=== PATIENT | male | born 1975 | race African-American/Black ===

== ENCOUNTER 2017-07-07 08:29 | Inpatient (IN) | payer OTHER ==
[2017-07-07 10:31] VITALS: BMI 33.3
--- NOTE | 2017-07-07 12:47 | HP ---
COWS - Scale Resting Pulse: 0= [place] 80 or Below Sweatin= Chills/Flushing Restless Observation: 3= Extraneous Movement Pupil Size: 0= Normal to Room Light Bone or Joint Aches: 2= Severe Diffuse Aches Runny Nose/ Eye Tearin= Runny Nose/Eyes GI Upset > 30mins: 1= Stomach Cramp Tremor Observation: 2= Slight Tremor Visible Yawning Observation: 2= >3x During Session Anxiety or Irritability: 2=Irritable/Anxious Goose Flesh Skin: 0=Smooth Skin COWS Score: 15 CIWA Score - CIWA Score Nausea/Vomitin-No Nausea/No Vomiting Muscle Tremors: 4-Moderate,w/Arms Extend Anxiety: 4-Mod. Anxious/Guarded Agitation: 4-Moderately Restless Paroxysmal Sweats: 1-Minimal Palms Moist Orientation: 3-Disoriented Date>2 days Tacttile Disturbances: 1-Very Mild Itch/Numbness Auditory Disturbances: 0-None Visual Disturbances: 0-None Headache: 2-Mild CIWA-Ar Total Score: 19 Admission [facility] - HPI Chief Complaint: withdrawal sx Allergies/Adverse Reactions: Allergies Allergy/AdvReac Type Severity Reaction Status Date / Time No Known Allergies Allergy Verified 07/07/17 11:14 History of Present Illness: 41 years old male with long history of alcohol oxy xanax nicotine dependence has diabetes depression is admitted to detox Exam Limitations: No Limitations - Ebola screening Have you traveled outside of the country in the last 21 days: No (N) Have you had contact with anyone from an Ebola affected area: No Have you been sick,other than usual withdrawal symptoms: No Do you have a fever: No - Review of Systems Constitutional: Changes in sleep, Weight Stable EENT: reports: Blurred Vision (need eye glasses) Respiratory: reports: No Symptoms reported Cardiac: reports: No Symptoms Reported GI: reports: Poor Fluid Intake, Abdominal cramping : reports: No Symptoms Reported Musculoskeletal: reports: Back Pain, Joint Pain, Muscle Pain, Neck Pain Integumentary: reports: No Symptoms Reported Neuro: reports: Tingling Endocrine: reports: No Symptoms Reported Hematology: reports: No Symptoms Reported Psychiatric: reports: Judgement Intact, Anxious, Depressed Other Systems: Reviewed and Negative Patient History - Patient Medical History Hx Anemia: No Hx Asthma: No Hx Chronic Obstructive Pulmonary Disease (COPD): No Hx Cancer: No Hx Cardiac Disorders: No Hx Congestive Heart Failure: No Hx Hypertension: No Hx Hypercholesterolemia: No Hx Pacemaker: No HX Cerebrovascular Accident: No Hx Seizures: No Hx Dementia: No Hx Diabetes: Yes (IDDM) Hx Gastrointestinal Disorders: No Hx Liver Disease: No Hx Genitourinary Disorders: No Hx Sexually Transmitted Disorders: No Hx Renal Disease (ESRD): No Hx Thyroid Disease: No Hx Human Immunodeficiency Virus (HIV): No Hx Hepatitis C: No Hx Depression: Yes Hx Suicide Attempt: Yes (insulin overdose in 2016) Hx Bipolar Disorder: No Hx Schizophrenia: No - Patient Surgical History Past Surgical History: No Hx Neurologic Surgery: No Hx Cataract Extraction: No Hx Cardiac Surgery: No Hx Lung Surgery: No Hx Breast Surgery: No Hx Breast Biopsy: No Hx Abdominal Surgery: No Hx Appendectomy: No Hx Cholecystectomy: No Hx Genitourinary Surgery: No Hx Orthopedic Surgery: No - PPD History Previous Implant?: Yes Documented Results: Negative w/o proof Implanted On Prior [facility] Admission?: No PPD to be Administered?: Yes - Smoking Cessation Smoking history: Current every day smoker Have you smoked in the past 12 months: Yes Aproximately how many cigarettes per day: 20 Cigars Per Day: 0 Hx Chewing Tobacco Use: No Initiated information on smoking cessation: Yes 'Breaking Loose' booklet given: 07/07/17 - Substance & Tx. History Hx Alcohol Use: Yes Hx Substance Use: Yes Substance Use Type: Alcohol, Marijuana, Opiates, Tranquilizers Hx Substance Use Treatment: Yes (2014) - Substances Abused Alcohol-yelena/vodka/beer Route: Oral Frequency: Daily Amount used: 3 pts./2 (40 oz.) Age of first use: 11 Date of Last Use: 07/06/17 Xanax Route: Oral Frequency: Daily Amount used: 6-8 mg. Age of first use: 41 Date of Last Use: 07/04/17 Oxycodone Route: Oral Frequency: 3-6 times per week Amount used: 30 mg Age of first use: 21 Date of Last Use: 07/06/17 Marijuana Route: Smoking Frequency: Daily Amount used: $10 Age of first use: 8 Date of Last Use: 07/04/17 Family Disease History - Family Disease History Family Disease History: Other: Father ( overdose), Mother ( overdose) Other Family History: only child Admission Physical Exam [facility] - Vital Signs Vital Signs: Vital Signs - 24 hr 07/07/17 10:25 Temperature 98.1 F Pulse Rate 64 Respiratory 14 Rate Blood Pressure 127/72 - Physical General Appearance: Yes: Nourished, Appropriately Dressed, Mild Distress, Moderate Distress, Tremorous, Irritable, Sweating, Anxious HEENTM: Yes: Hearing grossly Normal, Normal ENT Inspection, Normocephalic, Normal Voice Respiratory: Yes: Chest Non-Tender, Lungs Clear, Normal Breath Sounds, No Respiratory Distress, No Accessory Muscle Use Neck: Yes: Supple, Trachea in good position Breast: Yes: Breasts Symetrical Cardiology: Yes: Regular Rhythm, S1, S2, Bradycardia Abdominal: Yes: Normal Bowel Sounds, Non Tender, Flat Genitourinary: Yes: Within Normal Limits Back: Yes: Normal Inspection Musculoskeletal: Yes: full range of Motion, Gait Steady, Back pain, Muscle Pain Extremities: Yes: Normal Inspection, Normal Range of Motion, Non-Tender, Tremors Neurological: Yes: Alert, Motor Strength 5/5, Normal Response, Depressed Affect Integumentary: Yes: Warm Lymphatic: Yes: Within Normal Limits - Diagnostic (1) Alcohol dependence with uncomplicated withdrawal Current Visit: Yes Status: Acute (2) Opioid dependence with withdrawal Current Visit: Yes Status: Acute (3) Sedative, hypnotic or anxiolytic dependence with withdrawal, uncomplicated Current Visit: Yes Status: Acute (4) Diabetes mellitus, type II Current Visit: Yes Status: Chronic Qualifiers: Diabetes mellitus complication status: with neurologic complications Diabetes mellitus complication detail: with autonomic neuropathy Diabetes mellitus strapper operator insulin use: with strapper operator use Qualified Code(s): E11.43 - Type 2 diabetes mellitus with diabetic autonomic (poly)neuropathy; Z79.4 - nursing home (current) use of insulin; Z79.4 - nursing home (current) use of insulin; Z79.4 - periodicals clerk (current) use of insulin; Z79.4 - nursing home (current) use of insulin (5) Depression (emotion) Current Visit: Yes Status: Suspected Qualifiers: Depression Type: dysthymia Qualified Code(s): F34.1 - Dysthymic disorder Cleared for Admission [facility] - Detox or Rehab [facility] Level of Care: Medically Managed Detox Regimen/Protocol: Methadone/Valium [facility] Breath Alcohol Content Breath Alcohol Content: 0 Urine Drug Screen - Results Drug Screen Negative: No Urine Drug Screen Results: THC-Marijuana, BZO-Benzodiazepines, OXY-Oxycodone
[2017-07-07] MEDS ORDERED: LOPERAMIDE HCL 2 MG CAPSULE PO PRN (12:49)
[2017-07-07] MEDS ORDERED: MAG HYDROX/AL HYDROX/SIMETH 30 ML UNIT-DOSE CUP PO PRN (12:49)
[2017-07-07] MEDS ORDERED: guaiFENesin/D-METHORPHAN HB 10 ML UNIT-DOSE CUPS PO PRN (12:49)
[2017-07-07] MEDS ORDERED: NICOTINE POLACRILEX 4 MG GUM BUC PRN (12:49)
[2017-07-07] MEDS ORDERED: MENTHOL/PHENOL 1 EACH UD MM PRN (12:49)
[2017-07-07] MEDS ORDERED: MAGNESIUM CITRATE 300 ML BOTTLE PO PRN (12:49)
[2017-07-07] MEDS ORDERED: P-EPHED 60MG/TRIPROLIDI 2.5MG TABLET PO PRN (12:49)
[2017-07-07] MEDS ORDERED: ACETAMINOPHEN 325 MG TABLET (FP) PO PRN (12:49)
[2017-07-07] MEDS ORDERED: MAGNESIUM HYDROX 2400MG/30ML ORAL SUSPENSION 30 ML CUP PO PRN (12:49)
[2017-07-07] MEDS ORDERED: IBUPROFEN 400 MG TABLET (FP) PO PRN (12:49)
[2017-07-07] MEDS ORDERED: diazePAM 5 MG TABLET PO PRN (12:49)
[2017-07-07] MEDS ORDERED: diazePAM 5 MG TABLET PO ONE (13:05)
[2017-07-07] MEDS ORDERED: METHADONE HCL 10 MG TABLET (FOR DETOX USE ONLY) PO ONE ×2 (13:05→23:00)
--- NOTE | 2017-07-07 16:10 | CONSULT ---
[facility] Psychiatric Consult - Data Date of interview: 07/07/17 Admission source: [facility] Identifying data: Pt. is a 41 year old single male, father of five, unemployed and homeless. This is patient's first admission to [facility]. Pt. admitted to for alcohol, benzodiazepine, opiate, and marijuana dependence. Substance Abuse History: Following information confirmed with Mr. Avalos: Smoking Cessation. Smoking history: Current every day smoker. Have you smoked in the past 12 months: Yes. Aproximately how many cigarettes per day: 20. Cigars Per Day: 0. Hx Chewing Tobacco Use: No. Initiated information on smoking cessation: Yes. 'Breaking Loose' booklet given: 07/07/17. - Substance & Tx. History. Hx Alcohol Use: Yes. Hx Substance Use: Yes. Substance Use Type : Alcohol, Marijuana, Opiates, Tranquilizers. Hx Substance Use Treatment: Yes ( 2014). - Substances Abused. Alcohol-yelena/vodka/beer. Route: Oral. Frequency: Daily. Amount used: 3 pts./2 (40 oz.). Age of first use: 11. Date of Last Use: 07/06/17. Xanax. Route: Oral. Frequency: Daily. Amount used : 6-8 mg. Age of first use: 41. Date of Last Use: 07/04/17. Oxycodone. Route: Oral. Frequency: 3-6 times per week. Amount used: 30 mg. Age of first use: 21. Date of Last Use: 07/06/17. Marijuana. Route: Smoking. Frequency : Daily. Amount used: $10. Age of first use: 8. Date of Last Use: 07/04/17 Medical History: Diabetes. Psychiatric History: Patient reports one psychiatric hospitalization at [facility] after a suicide attempt via injecting self with a bottle of insulin while he was intoxicated in 2016 while living in [place]. Patient does not have an outpatient care provider but reports a brief h/o seeing a psychiatrist for 2-3 months in 2016. Claims to also have seen a psychiatrist while living in [place] in 2014. States he is diagnosed with PTSD ( has seen multiple people ) and Bipolar disorder. Reports being prescribed seroquel 100mg but has not has any psychotrophic medication in one year. Physical/Sexual Abuse/Trauma History: Denies. Mental Status Exam - Mental Status Exam Alert and Oriented to: Time, Place, Person Cognitive Function: Good Patient Appearance: Well Groomed Mood: Hopeful Affect: Appropriate Patient Behavior: Talkative, Appropriate, Cooperative Speech Pattern: Clear, Appropriate Voice Loudness: Normal Thought Process: Goal Oriented Thought Disorder: Not Present Hallucinations: Denies Suicidal Ideation: Denies Homicidal Ideation: Denies Insight/Judgement: Poor Sleep: Poorly Appetite: Fair Muscle strength/Tone: Normal Gait/Station: Normal Psychiatric Findings - Problem List ([place] 1, 2,3) (1) Substance induced mood disorder Current Visit: Yes Status: Suspected (2) Alcohol dependence with uncomplicated withdrawal Current Visit: Yes Status: Acute (3) Opioid dependence with withdrawal Current Visit: Yes Status: Acute (4) Sedative, hypnotic or anxiolytic dependence with withdrawal, uncomplicated Current Visit: Yes Status: Acute - Initial Treatment Plan Initial Treatment Plan: Psychoeducation provided. Detoxification in progress. Seroquel 50mg qhs ordered. Benefits and side effects discussed. Verbal consent given.
[2017-07-07] MEDS ORDERED: INSULIN (NOVOLOG MIX 70/30) 100 UNITS/ML MDV SQ SCH (16:30)
[2017-07-07] MEDS: INSULIN (NOVOLOG MIX 70/30) 100 UNITS/ML MDV SQ SCH (17:00)
[2017-07-07] MEDS: INSULIN SLIDING SCALE (NOVOLOG) 1 VIAL SQ SCH (17:01)
[2017-07-07 18:12] LABS: URINE APPEARANCE CLEAR; URINE BILIRUBIN NEGATIVE (NEGATIVE); URINE BLOOD NEGATIVE (NEGATIVE); URINE COLOR LTYELLOW; URINE GLUCOSE (UA) 3+ (NEGATIVE); URINE KETONE 1+ (NEGATIVE); URINE NITRITE NEGATIVE (NEGATIVE); URINE PROTEIN NEGATIVE (NEGATIVE)
[2017-07-07 18:26] LABS: URINE LEUK ESTERASE 1+ (NEGATIVE)
[2017-07-07 18:31] LABS: EPI CELLS RARE /HPF (FEW); URINE MUCUS RARE
[2017-07-07] MEDS: QUEtiapine FUMARATE 50 MG TABLET PO SCH (22:33)
[2017-07-07] MEDS: THIAMINE HCL 100 MG TABLET (FP) PO SCH (22:33)
[2017-07-07] MEDS: diazePAM 5 MG TABLET PO SCH (22:34)
[2017-07-08] MEDS: diazePAM 5 MG TABLET PO SCH ×3 (05:30→22:40)
[2017-07-08] MEDS ORDERED: INSULIN (NOVOLOG MIX 70/30) 100 UNITS/ML MDV SQ SCH (07:00)
[2017-07-08] MEDS: INSULIN SLIDING SCALE (NOVOLOG) 1 VIAL SQ SCH ×2 (07:20→16:52)
[2017-07-08] MEDS ORDERED: METHADONE HCL 10 MG TABLET (FOR DETOX USE ONLY) PO SCH (10:00)
[2017-07-08] MEDS: INSULIN (NOVOLOG MIX 70/30) 100 UNITS/ML MDV SQ SCH ×2 (10:10→16:52)
[2017-07-08] MEDS: NICOTINE 21 MG/24 HOURS TOPICAL PATCH TD SCH (10:10)
[2017-07-08] MEDS: PRENATAL VITAMINS W/ FOLIC ACID TABLET (FP) PO SCH (10:10)
[2017-07-08 10:26] LABS: HEMATOCRIT 44.8 % (35.4-49); HEMOGLOBIN 14.9 GM/dL (11.7-16.9); MCH 27.7 pg (25.7-33.7); MCHC 33.2 g/dl (32.0-35.9); MEAN CELL VOLUME 83.4 fl (80-96); PLATELET COUNT 178 K/MM3 (134-434); RBC 5.37 M/mm3 (4.00-5.60); RDW 15.3 % (11.9-15.9)
[2017-07-08 10:33] LABS: BLOOD UREA NITROGEN 11 mg/dL (7-18); CHLORIDE 102 mmol/L (98-107); POTASSIUM 4.5 mmol/L (3.5-5.1); SODIUM 138 mmol/L (136-145)
--- NOTE | 2017-07-08 10:57 | PN ---
[facility] CIWA - CIWA Score Nausea/Vomitin-No Nausea/No Vomiting Muscle Tremors: 3 Anxiety: 4-Mod. Anxious/Guarded Agitation: 3 Paroxysmal Sweats: 1-Minimal Palms Moist Orientation: 0-Oriented Tacttile Disturbances: 3-Moderate Itch/Numb/Burn Auditory Disturbances: 0-None Visual Disturbances: 0-None Headache: 0-None Present CIWA-Ar Total Score: 14 S COWS - Scale Resting Pulse: 0= [place] 80 or Below Sweatin= Chills/Flushing Restless Observation: 3= Extraneous Movement Pupil Size: 0= Normal to Room Light Bone or Joint Aches: 2= Severe Diffuse Aches Runny Nose/ Eye Tearin= Nasal Congestion GI Upset > 30mins: 0= None Tremor Observation of Outstretched Hands: 2= Slight Tremor Visible Yawning Observation: 1= 1-2x During Session Anxiety or Irritability: 2=Irritable/Anxious Goose Flesh Skin: 0=Smooth Skin COWS Score: 12 S Progress Note (SOAP) Subjective: ANXIETY, SWEATS, FATIGUE. Objective: 07/08/17 11:35 Vital Signs Temperature 96.4 F L 07/08/17 09:44 Pulse Rate 63 07/08/17 09:44 Respiratory Rate 20 07/08/17 09:44 Blood Pressure 128/80 07/08/17 09:44 O2 Sat by Pulse Oximetry (%) Laboratory Last Values WBC 5.0 K/mm3 (4.0-10.0) 07/08/17 06:00 RBC 5.37 M/mm3 (4.00-5.60) 07/08/17 06:00 Hgb 14.9 GM/dL (11.7-16.9) 07/08/17 06:00 Hct 44.8 % (35.4-49) 07/08/17 06:00 MCV 83.4 fl (80-96) 07/08/17 06:00 MCH 27.7 pg (25.7-33.7) 07/08/17 06:00 MCHC 33.2 g/dl (32.0-35.9) 07/08/17 06:00 RDW 15.3 % (11.9-15.9) 07/08/17 06:00 Plt Count 178 K/MM3 (134-434) 07/08/17 06:00 MPV 10.0 fl (7.5-11.1) 07/08/17 06:00 Sodium 138 mmol/L (136-145) 07/08/17 06:00 Potassium 4.5 mmol/L (3.5-5.1) 07/08/17 06:00 Chloride 102 mmol/L (98-107) 07/08/17 06:00 Carbon Dioxide 24 mmol/L (21-32) 07/08/17 06:00 Anion Gap 12 (8-16) 07/08/17 06:00 BUN 11 mg/dL (7-18) 07/08/17 06:00 Creatinine 0.9 mg/dL (0.7-1.3) 07/08/17 06:00 Creat Clearance w eGFR > 60 (>60) 07/08/17 06:00 POC Glucometer 366 UNITS (80-120) 07/07/17 16:28 Random Glucose 300 mg/dL (74-106) H 07/08/17 06:00 Calcium 9.2 mg/dL (8.5-10.1) 07/08/17 06:00 Total Bilirubin 0.8 mg/dL (0.2-1.0) 07/08/17 06:00 AST 18 U/L (15-37) 07/08/17 06:00 ALT 27 U/L (12-78) 07/08/17 06:00 Alkaline Phosphatase 92 U/L (45-117) 07/08/17 06:00 Total Protein 7.6 g/dl (6.4-8.2) 07/08/17 06:00 Albumin 4.1 g/dl (3.4-5.0) 07/08/17 06:00 Urine Color Ltyellow 07/07/17 16:00 Urine Appearance Clear 07/07/17 16:00 Urine pH 5.0 (5.0-8.0) 07/07/17 16:00 Ur Specific [place] 1.032 (1.001-1.035) 07/07/17 16:00 Urine Protein Negative (NEGATIVE) 07/07/17 16:00 Urine Glucose (UA) 3+ (NEGATIVE) H 07/07/17 16:00 Urine Ketones 1+ (NEGATIVE) H 07/07/17 16:00 Urine Blood Negative (NEGATIVE) 07/07/17 16:00 Urine Nitrite Negative (NEGATIVE) 07/07/17 16:00 Urine Bilirubin Negative (NEGATIVE) 07/07/17 16:00 Urine Urobilinogen 2.0 mg/dL (0.2-1.0) 07/07/17 16:00 Ur Leukocyte Esterase 1+ (NEGATIVE) H 07/07/17 16:00 Urine WBC (Auto) 15 /hpf (3-5) 07/07/17 16:00 Urine RBC (Auto) 4 /hpf (0-3) 07/07/17 16:00 Ur Epithelial Cells Rare /HPF (FEW) 07/07/17 16:00 Urine Mucus Rare 07/07/17 16:00 HIV 1&2 Antibody Screen Negative 07/07/17 13:30 HIV P24 Antigen Negative 07/07/17 13:30 LABS NOTED Assessment: 07/08/17 11:35 WITHDRAWAL SX Plan: CONTINUE DETOX REPEAT UA
[2017-07-08 11:00] LABS: ALBUMIN 4.1 g/dl (3.4-5.0); ALK PHOS 92 U/L (45-117); ANION GAP 12 (8-16); BILIRUBIN,TOTAL 0.8 mg/dL (0.2-1.0); CALCIUM 9.2 mg/dL (8.5-10.1); CO2 24 mmol/L (21-32); CREATININE 0.9 mg/dL (0.7-1.3); GLUCOSE,RANDOM 300 mg/dL (74-106); SGOT/AST 18 U/L (15-37); SGPT/ALT 27 U/L (12-78); TOT PROT 7.6 g/dl (6.4-8.2)
[2017-07-08] MEDS ORDERED: INSULIN (NOVOLOG) ASPART 100 UNITS/ML 10ML VIAL SQ ONE (12:20)
[2017-07-08] MEDS ORDERED: INSULIN (NOVOLOG) ASPART 100 UNITS/ML 10ML VIAL ONE ×2 (12:24→16:49)
[2017-07-08] MEDS: QUEtiapine FUMARATE 50 MG TABLET PO SCH (22:40)
[2017-07-08] MEDS: THIAMINE HCL 100 MG TABLET (FP) PO SCH (22:40)
[2017-07-09] MEDS ORDERED: INSULIN (NOVOLOG) ASPART 100 UNITS/ML 10ML VIAL ONE ×2 (09:13→18:04)
[2017-07-09] MEDS: INSULIN (NOVOLOG MIX 70/30) 100 UNITS/ML MDV SQ SCH ×2 (09:17→18:12)
[2017-07-09] MEDS: INSULIN SLIDING SCALE (NOVOLOG) 1 VIAL SQ SCH ×2 (09:18→18:12)
[2017-07-09] MEDS: diazePAM 5 MG TABLET PO SCH ×2 (10:12→22:20)
[2017-07-09] MEDS: PRENATAL VITAMINS W/ FOLIC ACID TABLET (FP) PO SCH (10:12)
[2017-07-09] MEDS: METHADONE HCL 5 MG TABLET (FOR DETOX USE ONLY) PO SCH (10:12)
[2017-07-09] MEDS: NICOTINE 21 MG/24 HOURS TOPICAL PATCH TD SCH (10:13)
--- NOTE | 2017-07-09 17:23 | PN ---
[facility] CIWA - CIWA Score Nausea/Vomitin-No Nausea/No Vomiting Muscle Tremors: 3 Anxiety: 3 Agitation: 2 Paroxysmal Sweats: 3 Orientation: 2-Disoriented Date<2 days Tacttile Disturbances: 2-Mild Itch/Numbness/Burn Auditory Disturbances: 0-None Visual Disturbances: 2-Mild Sensitivity Headache: 0-None Present CIWA-Ar Total Score: 17 [facility] COWS - Scale Resting Pulse: 0= [place] 80 or Below Sweatin= Chills/Flushing Restless Observation: 1= Difficult to Sit Still Pupil Size: 0= Normal to Room Light Bone or Joint Aches: 2= Severe Diffuse Aches Runny Nose/ Eye Tearin= None GI Upset > 30mins: 1= Stomach Cramp Tremor Observation of Outstretched Hands: 2= Slight Tremor Visible Yawning Observation: 1= 1-2x During Session Anxiety or Irritability: 2=Irritable/Anxious Goose Flesh Skin: 3=Piloerection COWS Score: 13 S Progress Note (SOAP) Subjective: Stomach Cramping, Tremors, Sweating, Anxious. Objective: PT. A & O X 2 (UNCERTAIN ABOUT CURRENT DAY / DATE). PT. OBSERVED AMBULATING ON UNIT. NO ACUTE DISTRESS. 07/09/17 17:21 Vital Signs Temperature 98.4 F 07/09/17 14:19 Pulse Rate 68 07/09/17 14:19 Respiratory Rate 18 07/09/17 14:19 Blood Pressure 127/73 07/09/17 14:19 O2 Sat by Pulse Oximetry (%) Laboratory Tests 07/07/17 07/07/17 07/07/17 11:43 13:30 16:00 WBC RBC Hgb Hct MCV MCH MCHC RDW Plt Count MPV Sodium Potassium Chloride Carbon Dioxide Anion Gap BUN Creatinine Creat Clearance w eGFR POC Glucometer 261 Random Glucose Calcium Total Bilirubin AST ALT Alkaline Phosphatase Total Protein Albumin Urine Color Ltyellow Urine Appearance Clear Urine pH 5.0 Ur Specific [place] 1.032 Urine Protein Negative Urine Glucose (UA) 3+ H Urine Ketones 1+ H Urine Blood Negative Urine Nitrite Negative Urine Bilirubin Negative Urine Urobilinogen 2.0 Ur Leukocyte Esterase 1+ H Urine WBC (Auto) 15 Urine RBC (Auto) 4 Ur Epithelial Cells Rare Urine Mucus Rare RPR Titer HIV 1&2 Antibody Screen Negative HIV P24 Antigen Negative 07/07/17 07/08/17 07/08/17 16:28 06:00 06:00 WBC 5.0 RBC 5.37 Hgb 14.9 Hct 44.8 MCV 83.4 MCH 27.7 MCHC 33.2 RDW 15.3 Plt Count 178 MPV 10.0 Sodium 138 Potassium 4.5 Chloride 102 Carbon Dioxide 24 Anion Gap 12 BUN 11 Creatinine 0.9 Creat Clearance w eGFR > 60 POC Glucometer 366 Random Glucose 300 H Calcium 9.2 Total Bilirubin 0.8 AST 18 ALT 27 Alkaline Phosphatase 92 Total Protein 7.6 Albumin 4.1 Urine Color Urine Appearance Urine pH Ur Specific [place] Urine Protein Urine Glucose (UA) Urine Ketones Urine Blood Urine Nitrite Urine Bilirubin Urine Urobilinogen Ur Leukocyte Esterase Urine WBC (Auto) Urine RBC (Auto) Ur Epithelial Cells Urine Mucus RPR Titer HIV 1&2 Antibody Screen HIV P24 Antigen 07/08/17 07/08/17 07/08/17 06:00 11:42 16:42 WBC RBC Hgb Hct MCV MCH MCHC RDW Plt Count MPV Sodium Potassium Chloride Carbon Dioxide Anion Gap BUN Creatinine Creat Clearance w eGFR POC Glucometer 310 346 Random Glucose Calcium Total Bilirubin AST ALT Alkaline Phosphatase Total Protein Albumin Urine Color Urine Appearance Urine pH Ur Specific [place] Urine Protein Urine Glucose (UA) Urine Ketones Urine Blood Urine Nitrite Urine Bilirubin Urine Urobilinogen Ur Leukocyte Esterase Urine WBC (Auto) Urine RBC (Auto) Ur Epithelial Cells Urine Mucus RPR Titer Nonreactive HIV 1&2 Antibody Screen HIV P24 Antigen LABS NOTED. Assessment: 07/09/17 17:21 WITHDRAWAL SYMPTOMS. Plan: CONTINUE DETOX. REPEAT UA FOR ADMISSION ABNORAMLITIES. INCREASE DAILY PO FLUID INTAKE.
[2017-07-09] MEDS: QUEtiapine FUMARATE 50 MG TABLET PO SCH (22:20)
[2017-07-09] MEDS: THIAMINE HCL 100 MG TABLET (FP) PO SCH (22:20)
[2017-07-10] MEDS: INSULIN SLIDING SCALE (NOVOLOG) 1 VIAL SQ SCH ×2 (08:04→18:12)
[2017-07-10] MEDS: INSULIN (NOVOLOG MIX 70/30) 100 UNITS/ML MDV SQ SCH ×2 (08:04→18:11)
[2017-07-10] MEDS: PRENATAL VITAMINS W/ FOLIC ACID TABLET (FP) PO SCH (09:46)
[2017-07-10] MEDS: METHADONE HCL 5 MG TABLET (FOR DETOX USE ONLY) PO SCH (09:46)
[2017-07-10] MEDS: diazePAM 5 MG TABLET PO SCH ×2 (09:46→22:12)
[2017-07-10] MEDS: NICOTINE 21 MG/24 HOURS TOPICAL PATCH TD SCH (09:46)
[2017-07-10] MEDS ORDERED: INSULIN (NOVOLOG) ASPART 100 UNITS/ML 10ML VIAL ONE (16:32)
--- NOTE | 2017-07-10 19:57 | PN ---
[facility] Progress Note (SOAP) Subjective: shakes sweats Objective: 07/10/17 19:56 A & O x 3 Ambulating steadily Assessment: 07/10/17 19:56 withdrawal sx Plan: continue detox
[2017-07-10] MEDS: THIAMINE HCL 100 MG TABLET (FP) PO SCH (22:12)
[2017-07-10] MEDS: QUEtiapine FUMARATE 50 MG TABLET PO SCH (22:12)
[2017-07-11] MEDS: INSULIN SLIDING SCALE (NOVOLOG) 1 VIAL SQ SCH ×3 (07:25→18:20)
[2017-07-11] MEDS ORDERED: INSULIN (NOVOLOG) ASPART 100 UNITS/ML 10ML VIAL ONE ×2 (07:48→18:20)
[2017-07-11] MEDS: INSULIN (NOVOLOG MIX 70/30) 100 UNITS/ML MDV SQ SCH ×2 (07:55→18:18)
[2017-07-11] MEDS ORDERED: METHADONE HCL 10 MG TABLET (FOR DETOX USE ONLY) PO SCH (10:00)
[2017-07-11] MEDS ORDERED: diazePAM 5 MG TABLET PO SCH (10:00)
[2017-07-11] MEDS: NICOTINE 21 MG/24 HOURS TOPICAL PATCH TD SCH (10:18)
[2017-07-11] MEDS: PRENATAL VITAMINS W/ FOLIC ACID TABLET (FP) PO SCH (10:18)
--- NOTE | 2017-07-11 10:50 | PN ---
[facility] Progress Note (SOAP) Subjective: SWEATS,SLIGHT ANXIETY, BODY ACHES. Objective: 07/11/17 10:49 Vital Signs Temperature 97.4 F L 07/11/17 10:00 Pulse Rate 72 07/11/17 10:00 Respiratory Rate 20 07/11/17 10:00 Blood Pressure 119/72 07/11/17 10:00 O2 Sat by Pulse Oximetry (%) Laboratory Last Values WBC 5.0 K/mm3 (4.0-10.0) 07/08/17 06:00 RBC 5.37 M/mm3 (4.00-5.60) 07/08/17 06:00 Hgb 14.9 GM/dL (11.7-16.9) 07/08/17 06:00 Hct 44.8 % (35.4-49) 07/08/17 06:00 MCV 83.4 fl (80-96) 07/08/17 06:00 MCH 27.7 pg (25.7-33.7) 07/08/17 06:00 MCHC 33.2 g/dl (32.0-35.9) 07/08/17 06:00 RDW 15.3 % (11.9-15.9) 07/08/17 06:00 Plt Count 178 K/MM3 (134-434) 07/08/17 06:00 MPV 10.0 fl (7.5-11.1) 07/08/17 06:00 Sodium 138 mmol/L (136-145) 07/08/17 06:00 Potassium 4.5 mmol/L (3.5-5.1) 07/08/17 06:00 Chloride 102 mmol/L (98-107) 07/08/17 06:00 Carbon Dioxide 24 mmol/L (21-32) 07/08/17 06:00 Anion Gap 12 (8-16) 07/08/17 06:00 BUN 11 mg/dL (7-18) 07/08/17 06:00 Creatinine 0.9 mg/dL (0.7-1.3) 07/08/17 06:00 Creat Clearance w eGFR > 60 (>60) 07/08/17 06:00 POC Glucometer 263 UNITS (80-120) 07/11/17 07:43 Random Glucose 300 mg/dL (74-106) H 07/08/17 06:00 Calcium 9.2 mg/dL (8.5-10.1) 07/08/17 06:00 Total Bilirubin 0.8 mg/dL (0.2-1.0) 07/08/17 06:00 AST 18 U/L (15-37) 07/08/17 06:00 ALT 27 U/L (12-78) 07/08/17 06:00 Alkaline Phosphatase 92 U/L (45-117) 07/08/17 06:00 Total Protein 7.6 g/dl (6.4-8.2) 07/08/17 06:00 Albumin 4.1 g/dl (3.4-5.0) 07/08/17 06:00 Urine Color Ltyellow 07/07/17 16:00 Urine Appearance Clear 07/07/17 16:00 Urine pH 5.0 (5.0-8.0) 07/07/17 16:00 Ur Specific [place] 1.032 (1.001-1.035) 07/07/17 16:00 Urine Protein Negative (NEGATIVE) 07/07/17 16:00 Urine Glucose (UA) 3+ (NEGATIVE) H 07/07/17 16:00 Urine Ketones 1+ (NEGATIVE) H 07/07/17 16:00 Urine Blood Negative (NEGATIVE) 07/07/17 16:00 Urine Nitrite Negative (NEGATIVE) 07/07/17 16:00 Urine Bilirubin Negative (NEGATIVE) 07/07/17 16:00 Urine Urobilinogen 2.0 mg/dL (0.2-1.0) 07/07/17 16:00 Ur Leukocyte Esterase 1+ (NEGATIVE) H 07/07/17 16:00 Urine WBC (Auto) 15 /hpf (3-5) 07/07/17 16:00 Urine RBC (Auto) 4 /hpf (0-3) 07/07/17 16:00 Ur Epithelial Cells Rare /HPF (FEW) 07/07/17 16:00 Urine Mucus Rare 07/07/17 16:00 RPR Titer Nonreactive (NONREACTIVE) 07/08/17 06:00 HIV 1&2 Antibody Screen Negative 07/07/17 13:30 HIV P24 Antigen Negative 07/07/17 13:30 REPEAT UA PENDING Assessment: 07/11/17 10:49 WITHDRAWAL SX Plan: CONTINUE DETOX INCREASE PO FLUIDS.
[2017-07-11] MEDS: THIAMINE HCL 100 MG TABLET (FP) PO SCH (22:31)
[2017-07-11] MEDS: QUEtiapine FUMARATE 50 MG TABLET PO SCH (22:31)
[2017-07-12] MEDS ORDERED: METHADONE HCL 5 MG TABLET (FOR DETOX USE ONLY) PO SCH (06:00)
[2017-07-12] MEDS: INSULIN SLIDING SCALE (NOVOLOG) 1 VIAL SQ SCH (08:01)
[2017-07-12] MEDS: INSULIN (NOVOLOG MIX 70/30) 100 UNITS/ML MDV SQ SCH (08:01)
--- NOTE | 2017-07-12 09:36 | DS ---
[facility] Detox Discharge Summary Admission Date: 07/07/17 Discharge Date: 07/12/17 - History Present History: Alcohol Dependence, Opioid Dependence, Sedative Dependence Additional Comments: DETOX COMPLETED. ALERT O X 3. NAD. Pertinent Past History: SEE DX BELOW - Physical Exam Results Vital Signs: Vital Signs Temperature 97.9 F 07/11/17 22:35 Pulse Rate 73 07/11/17 22:35 Respiratory Rate 20 07/12/17 03:30 Blood Pressure 135/77 07/11/17 22:35 O2 Sat by Pulse Oximetry (%) Pertinent Admission Physical Exam Findings: WITHDRAWAL SX Laboratory Last Values WBC 5.0 K/mm3 (4.0-10.0) 07/08/17 06:00 RBC 5.37 M/mm3 (4.00-5.60) 07/08/17 06:00 Hgb 14.9 GM/dL (11.7-16.9) 07/08/17 06:00 Hct 44.8 % (35.4-49) 07/08/17 06:00 MCV 83.4 fl (80-96) 07/08/17 06:00 MCH 27.7 pg (25.7-33.7) 07/08/17 06:00 MCHC 33.2 g/dl (32.0-35.9) 07/08/17 06:00 RDW 15.3 % (11.9-15.9) 07/08/17 06:00 Plt Count 178 K/MM3 (134-434) 07/08/17 06:00 MPV 10.0 fl (7.5-11.1) 07/08/17 06:00 Sodium 138 mmol/L (136-145) 07/08/17 06:00 Potassium 4.5 mmol/L (3.5-5.1) 07/08/17 06:00 Chloride 102 mmol/L (98-107) 07/08/17 06:00 Carbon Dioxide 24 mmol/L (21-32) 07/08/17 06:00 Anion Gap 12 (8-16) 07/08/17 06:00 BUN 11 mg/dL (7-18) 07/08/17 06:00 Creatinine 0.9 mg/dL (0.7-1.3) 07/08/17 06:00 Creat Clearance w eGFR > 60 (>60) 07/08/17 06:00 POC Glucometer 336 UNITS (80-120) 07/11/17 16:28 Random Glucose 300 mg/dL (74-106) H 07/08/17 06:00 Calcium 9.2 mg/dL (8.5-10.1) 07/08/17 06:00 Total Bilirubin 0.8 mg/dL (0.2-1.0) 07/08/17 06:00 AST 18 U/L (15-37) 07/08/17 06:00 ALT 27 U/L (12-78) 07/08/17 06:00 Alkaline Phosphatase 92 U/L (45-117) 07/08/17 06:00 Total Protein 7.6 g/dl (6.4-8.2) 07/08/17 06:00 Albumin 4.1 g/dl (3.4-5.0) 07/08/17 06:00 Urine Color Ltyellow 07/07/17 16:00 Urine Appearance Clear 07/07/17 16:00 Urine pH 5.0 (5.0-8.0) 07/07/17 16:00 Ur Specific [place] 1.032 (1.001-1.035) 07/07/17 16:00 Urine Protein Negative (NEGATIVE) 07/07/17 16:00 Urine Glucose (UA) 3+ (NEGATIVE) H 07/07/17 16:00 Urine Ketones 1+ (NEGATIVE) H 07/07/17 16:00 Urine Blood Negative (NEGATIVE) 07/07/17 16:00 Urine Nitrite Negative (NEGATIVE) 07/07/17 16:00 Urine Bilirubin Negative (NEGATIVE) 07/07/17 16:00 Urine Urobilinogen 2.0 mg/dL (0.2-1.0) 07/07/17 16:00 Ur Leukocyte Esterase 1+ (NEGATIVE) H 07/07/17 16:00 Urine WBC (Auto) 15 /hpf (3-5) 07/07/17 16:00 Urine RBC (Auto) 4 /hpf (0-3) 07/07/17 16:00 Ur Epithelial Cells Rare /HPF (FEW) 07/07/17 16:00 Urine Mucus Rare 07/07/17 16:00 RPR Titer Nonreactive (NONREACTIVE) 07/08/17 06:00 HIV 1&2 Antibody Screen Negative 07/07/17 13:30 HIV P24 Antigen Negative 07/07/17 13:30 PT REFUSED TO GIVE SPECIMEN FOR REPEAT UA ON 07/10/17 PER NURSE RUBI. ASYMPTOMATIC. - Treatment Hospital Course: Detox Protocol Followed, Detoxed Safely, Responded well, Discharged Condition Good - Medication Discharge Medications: Ambulatory Orders Insulin Aspart Prot/Insuln Asp [Novolog Mix 70-30 Vial] 15 unit SQ ACDIN Insulin Aspart Prot/Insuln Asp [Novolog Mix 70-30 Vial] 30 unit SQ ACBK Quetiapine Fumarate [Seroquel -] 100 mg PO HS 07/07/17 - Diagnosis (1) Alcohol dependence with uncomplicated withdrawal Current Visit: Yes Status: Acute (2) Opioid dependence with withdrawal Current Visit: Yes Status: Acute (3) Sedative, hypnotic or anxiolytic dependence with withdrawal, uncomplicated Current Visit: Yes Status: Acute (4) Diabetes mellitus, type II Current Visit: Yes Status: Chronic Qualifiers: Diabetes mellitus complication status: with neurologic complications Diabetes mellitus complication detail: with autonomic neuropathy Diabetes mellitus termite treater helper insulin use: with termite treater helper use Qualified Code(s): E11.43 - Type 2 diabetes mellitus with diabetic autonomic (poly)neuropathy; Z79.4 - custodial (current) use of insulin; Z79.4 - superintendent terminal (current) use of insulin; Z79.4 - superintendent terminal (current) use of insulin; Z79.4 - custodial (current) use of insulin (5) Substance induced mood disorder Current Visit: Yes Status: Suspected - AMA Did Patient Leave Against Medical Advice: No
[2017-07-12 10:03] VITALS: BP 124/76; PULSE 60; TEMP 98.4
[2017-07-12] MEDS: PRENATAL VITAMINS W/ FOLIC ACID TABLET (FP) PO SCH (10:18)
[2017-07-12] MEDS: NICOTINE 21 MG/24 HOURS TOPICAL PATCH TD SCH (10:18)
--- NOTE | 2017-07-12 13:39 | EKG ---
Test Reason : Blood Pressure : / mmHG Vent. Rate : 070 BPM Atrial Rate : 070 BPM P-R Int : 154 ms QRS Dur : 092 ms QT Int : 418 ms P-R-T Axes : 050 015 039 degrees QTc Int : 451 ms NORMAL SINUS RHYTHM NORMAL ECG NO PREVIOUS ECGS AVAILABLE Confirmed by MD Mcneal Daniel ([id number]) on 07/12/2017 1:38:52 PM Referred By: Confirmed By:Wilfredo Mcneal MD
== END 2017-07-12 10:40 | disposition home or self-care (01) | DRG 897 ==
LOC: YASAS 08:29 → Y3N 12:19
PROVIDERS: ADMIT Internal Medicine; ATTEND Internal Medicine
PROC: HZ2ZZZZ Detoxification Services for Substance Abuse Treatment (ICD-10-PCS; principal; 2017-07-07)
DX: F11.23 Opioid dependence with withdrawal (principal); F13.230 Sedative, hypnotic or anxiolytic dependence with withdrawal, uncomplicated; F19.24 Other psychoactive substance dependence with psychoactive substance-induced mood disorder; F34.1 Dysthymic disorder; E11.43 Type 2 diabetes mellitus with diabetic autonomic (poly)neuropathy; Z79.4 Long term (current) use of insulin; Z59.0 Homelessness
CPT/HCPCS: 36415; 80053; 81003; 81015; 82962; 85027; 86593; 87389; 93005; 93010

== ENCOUNTER 2017-12-09 13:44 | Inpatient (IN) | payer OTHER ==
--- NOTE | 2017-12-09 20:27 | HP ---
"COWS - Scale Resting Pulse: 0= [place] 80 or Below Sweatin= No chills or Flushing Restless Observation: 1= Difficult to Sit Still Pupil Size: 1= Pupils >than Normal Bone or Joint Aches: 0= None Runny Nose/ Eye Tearin= None GI Upset > 30mins: 0= None Tremor Observation: 1= Tremor Webster, Not Seen Yawning Observation: 0= None Anxiety or Irritability: 1=Feels Anxious/Irritable Goose Flesh Skin: 0=Smooth Skin COWS Score: 4 CIWA Score - CIWA Score Nausea/Vomitin-Mild Nausea/No Vomiting Muscle Tremors: 4-Moderate,w/Arms Extend Anxiety: 1-Mildly Anxious Agitation: 1-Slight > Activity Paroxysmal Sweats: No Perspiration Orientation: 0-Oriented Tacttile Disturbances: 0-None Auditory Disturbances: 0-None Visual Disturbances: 0-None Headache: 0-None Present CIWA-Ar Total Score: 7 Admission ROS BHS - HPI Chief Complaint: Here for alcohol detox. Allergies/Adverse Reactions: Allergies Allergy/AdvReac Type Severity Reaction Status Date / Time No Known Allergies Allergy Verified 12/09/17 19:40 History of Present Illness: Patient went to [facility] on 12/07 and monitored x 3 days for mental health reasons to get seroquel for sleep. States discharged today and prescriptions for Abilify, gabapentin, and Zoloft sent to [facility] on [address] No heroin use x 1 week. Patient states does not take gabapentin or abilify and will not be staring these medications. States takes Zoloft. States does not have a mental health provider. States alcohol use since age 10. Denies hx of blackouts or seizures. Cocaine use , nasally, since age 23. States illicit Xanax use since age 40. Denies alcohol or cocaine and Xanax use x 2 days. No heroin use for 1 week. Denies any period of sobriety. States relapses 1 week after detox. States interested in rehab for this visit. Is aware being admitted for an alcohol and cocaine detox. Hx IDDM. Search Terms: Satinder Avalos, 1975 Search Date: 12/09/2017 08:17:16 PM The Drug Utilization Report below displays all of the controlled substance prescriptions, if any, that your patient has filled in the last twelve months. The information displayed on this report is compiled from pharmacy submissions to the Department, and accurately reflects the information as submitted by the pharmacies. This report was requested by: Jess Reyes | Reference #: [id number] There are no results for the search terms that you entered. Exam Limitations: No Limitations - Ebola screening Have you traveled outside of the country in the last 21 days: No Have you had contact with anyone from an Ebola affected area: No Have you been sick,other than usual withdrawal symptoms: No Do you have a fever: No - Review of Systems Constitutional: Changes in sleep (Difficulty falling asleep for years. Takes Seroquel for sleep as well as to stabilize mood.) EENT: reports: Blurred Vision (Wears glasses. Did not bring.) Respiratory: reports: No Symptoms reported Cardiac: reports: No Symptoms Reported GI: reports: No Symptoms Reported : reports: No Symptoms Reported Musculoskeletal: reports: No Symptoms Reported Integumentary: reports: Other (Pimple on forehead x 1 week. Does not itch.) Neuro: reports: Tremors (mild r/t withdrawal) Endocrine: reports: Increased Thirst (Since hasn't taken insulin.), Other (Has IDDM x 15 years.) Hematology: reports: No Symptoms Reported Psychiatric: reports: Orientated x3, Agitated, Anxious, Depressed (Chronic. Off and on meds for depression. Denies thoughts of harming self.) Patient History - Patient Medical History Hx Anemia: No Hx Asthma: No Hx Chronic Obstructive Pulmonary Disease (COPD): No Hx Cancer: No Hx Cardiac Disorders: No Hx Congestive Heart Failure: No Hx Hypertension: No Hx Hypercholesterolemia: No Hx Pacemaker: No HX Cerebrovascular Accident: No Hx Seizures: No Hx Dementia: No Hx Diabetes: Yes (IDDM - last took insulin on 12/07. ) Hx Gastrointestinal Disorders: No Hx Liver Disease: No Hx Genitourinary Disorders: No Hx Sexually Transmitted Disorders: No Hx Renal Disease (ESRD): No Hx Thyroid Disease: No Hx Human Immunodeficiency Virus (HIV): No Hx Hepatitis C: No Hx Depression: Yes Hx Suicide Attempt: Yes (insulin overdose in 2016) Hx Bipolar Disorder: No Hx Schizophrenia: No - Patient Surgical History Past Surgical History: No Hx Neurologic Surgery: No Hx Cataract Extraction: No Hx Cardiac Surgery: No Hx Lung Surgery: No Hx Breast Surgery: No Hx Breast Biopsy: No Hx Abdominal Surgery: No Hx Appendectomy: No Hx Cholecystectomy: No Hx Genitourinary Surgery: No Hx Section: No Hx Orthopedic Surgery: No Anesthesia Reaction: No - PPD History Previous Implant?: Yes Documented Results: Negative w/proof Implanted On Prior [facility] Admission?: Yes Date: 07/09/17 PPD to be Administered?: No - Smoking Cessation Smoking history: Current every day smoker Have you smoked in the past 12 months: Yes Aproximately how many cigarettes per day: 20 Cigars Per Day: 0 Hx Chewing Tobacco Use: No Initiated information on smoking cessation: Yes 'Breaking Loose' booklet given: 12/09/17 - Substance & Tx. History Hx Alcohol Use: Yes Hx Substance Use: Yes Substance Use Type: Alcohol, Cocaine Hx Substance Use Treatment: Yes (previous detoxes ) - Substances Abused Alcohol Route: Oral Frequency: Daily Amount used: LIQUOR- 1 QUART, BEER- 1 SIX PACK Age of first use: 10 Date of Last Use: 12/07/17 Cocaine Route: Inhalation (Sniff) Frequency: Daily Amount used: 1 gm Age of first use: 23 Date of Last Use: 12/07/17 Alprazolam (Xanax) Route: Oral Frequency: Daily Amount used: 6 mg daily Age of first use: 40 Date of Last Use: 12/06/17 Heroin Route: Inhalation Frequency: 3-6 times per week (About 3 x/week.) Amount used: 6 bags Age of first use: 33 Date of Last Use: 12/02/17 Family Disease History - Family Disease History Family Disease History: Other: Father ( overdose), Mother ( overdose) Admission Physical Exam [facility] - Vital Signs Vital Signs: Vital Signs - 24 hr 12/09/17 17:09 Temperature 98.9 F Pulse Rate 78 Respiratory 18 Rate Blood Pressure 128/73 - Physical General Appearance: Yes: Tremorous, Irritable, Anxious HEENTM: Yes: EOMI, Hearing grossly Normal, Normal Voice, SIERRA (4 mm) Respiratory: Yes: Chest Non-Tender, Lungs Clear, Normal Breath Sounds, No Respiratory Distress Neck: Yes: No masses,lesions,Nodules, Supple Breast: Yes: Breast Exam Deferred Cardiology: Yes: Regular Rhythm, Regular Rate, S1, S2 Abdominal: Yes: Normal Bowel Sounds, Non Tender, Soft Genitourinary: Yes: Within Normal Limits Back: Yes: Normal Inspection Musculoskeletal: Yes: full range of Motion, Gait Steady Extremities: Yes: Normal Capillary Refill, Normal Range of Motion, Non-Tender, Tremors (mild in hands) Neurological: Yes: taker off braker machine II-XII NML intact, Fully Oriented, Motor Strength 5/5 Integumentary: Yes: Normal Color, Dry, Warm, Other (Single papular lesions(R) forehead. No exudate.) Lymphatic: Yes: Within Normal Limits - Diagnostic (1) Opioid abuse Current Visit: Yes Status: Chronic (2) Cocaine dependence Current Visit: Yes Status: Chronic Qualifiers: Substance use status: uncomplicated Qualified Code(s): F14.20 - Cocaine dependence, uncomplicated (3) IDDM (insulin dependent diabetes mellitus) Current Visit: Yes Status: Acute (4) Alcohol dependence with uncomplicated withdrawal Current Visit: Yes Status: Acute (5) Nicotine dependence unspecified, with withdrawal Current Visit: Yes Status: Acute Qualifiers: Nicotine product type: cigarettes Qualified Code(s): F17.213 - Nicotine dependence, cigarettes, with withdrawal (6) Papular eruption Current Visit: Yes Status: Acute Cleared for Admission [facility] - Detox or Rehab [facility] Level of Care: Medically Managed Detox Regimen/Protocol: Librium [facility] Breath Alcohol Content Breath Alcohol Content: 0 Urine Drug Screen - Results Drug Screen Negative: No Urine Drug Screen Results: DARIN-Cocaine"
[2017-12-09] MEDS ORDERED: MAGNESIUM CITRATE 300 ML BOTTLE PO PRN (21:15)
[2017-12-09] MEDS ORDERED: MENTHOL/PHENOL 1 EACH UD MM PRN (21:15)
[2017-12-09] MEDS ORDERED: hydrOXYzine PAMOATE 50 MG CAPSULE (FP) PO PRN (21:15)
[2017-12-09] MEDS ORDERED: IBUPROFEN 400 MG TABLET (FP) PO PRN (21:15)
[2017-12-09] MEDS ORDERED: guaiFENesin/D-METHORPHAN HB 10 ML UNIT-DOSE CUPS PO PRN (21:15)
[2017-12-09] MEDS ORDERED: P-EPHED 60MG/TRIPROLIDI 2.5MG TABLET PO PRN (21:15)
[2017-12-09] MEDS ORDERED: chlordiazePOXIDE HCL 25 MG CAPSULE PO PRN (21:15)
[2017-12-09] MEDS ORDERED: MAG HYDROX/AL HYDROX/SIMETH 30 ML UNIT-DOSE CUP PO PRN (21:15)
[2017-12-09] MEDS ORDERED: MAGNESIUM HYDROX 2400MG/30ML ORAL SUSPENSION 30 ML CUP PO PRN (21:15)
[2017-12-09] MEDS ORDERED: LOPERAMIDE HCL 2 MG CAPSULE PO PRN (21:15)
[2017-12-09] MEDS ORDERED: ACETAMINOPHEN 325 MG TABLET (FP) PO PRN (21:15)
[2017-12-09] MEDS ORDERED: MELATONIN 5 MG TABLETS PO PRN (22:00)
[2017-12-09] MEDS ORDERED: INSULIN (NOVOLOG MIX 70/30) 100 UNITS/ML MDV SQ SCH (22:00)
[2017-12-09] MEDS: THIAMINE HCL 100 MG TABLET (FP) PO SCH (23:06)
[2017-12-09] MEDS: BACITRACIN 0.9 GM PACKET TP SCH (23:06)
[2017-12-09] MEDS: chlordiazePOXIDE HCL 25 MG CAPSULE PO SCH (23:07)
[2017-12-10] MEDS: INSULIN (NOVOLOG MIX 70/30) 100 UNITS/ML MDV SQ SCH ×2 (07:18→16:56)
[2017-12-10] MEDS: chlordiazePOXIDE HCL 25 MG CAPSULE PO SCH ×4 (07:18→23:20)
[2017-12-10] MEDS ORDERED: INSULIN (NOVOLOG MIX 70/30) 100 UNITS/ML MDV SQ SCH (08:00)
[2017-12-10] MEDS: BACITRACIN 0.9 GM PACKET TP SCH ×2 (11:00→23:19)
[2017-12-10] MEDS: PRENATAL VITAMINS W/ FOLIC ACID TABLET (FP) PO SCH (11:00)
[2017-12-10] MEDS: NICOTINE 21 MG/24 HOURS TOPICAL PATCH TD SCH (11:00)
--- NOTE | 2017-12-10 11:02 | PN ---
S CIWA - CIWA Score Nausea/Vomitin Muscle Tremors: 2 Anxiety: 2 Agitation: 2 Paroxysmal Sweats: 1-Minimal Palms Moist Orientation: 0-Oriented Tacttile Disturbances: 1-Very Mild Itch/Numbness Auditory Disturbances: 0-None Visual Disturbances: 0-None Headache: 2-Mild CIWA-Ar Total Score: 12 BHS COWS - Scale Resting Pulse: 0= [place] 80 or Below Sweatin= Chills/Flushing Restless Observation: 1= Difficult to Sit Still Pupil Size: 0= Normal to Room Light Bone or Joint Aches: 1= Mild Discomfort Runny Nose/ Eye Tearin= Nasal Congestion GI Upset > 30mins: 1= Stomach Cramp Tremor Observation of Outstretched Hands: 1= Tremor Bee, Not Seen Yawning Observation: 0= None Anxiety or Irritability: 0= None Goose Flesh Skin: 0=Smooth Skin COWS Score: 6 BHS Progress Note (SOAP) Subjective: Anxiety, irritability and sleep interruption Objective: 12/10/17 11:01 Vital Signs - 8 hr 12/10/17 12/10/17 12/10/17 03:30 06:00 10:09 Temperature 96.8 F L 98.9 F Pulse Rate 60 55 L Respiratory 18 18 18 Rate Blood Pressure 91/49 116/51 Laboratory Last Values POC Glucometer 282 UNITS (80-120) 12/10/17 06:53 Labs pending Assessment: 12/10/17 11:02 Withdrawal sx Plan: Continue detox
--- NOTE | 2017-12-10 13:50 | CONSULT ---
[facility] Psychiatric Consult - Data Date of interview: 12/10/17 Admission source: [facility] Identifying data: Second admission to [facility] for this 42 y/o AA male seeking detox treatment, on , for alcohol,cocaine,heroin and cannabis dependence.Patient is single, a father of five,undomiciled,unemployed and not informative about personal income. Substance Abuse History: Taken from [facility] report.Patient is marginally cooperative." Why don't you go to my records to get the information? " Smoking history: Current every day smoker. Have you smoked in the past 12 months: Yes. Aproximately how many cigarettes per day: 20. Cigars Per Day: 0. Hx Chewing Tobacco Use: No. Initiated information on smoking cessation: Yes. 'Breaking Loose' booklet given: 12/09/17. - Substance & Tx. History. Hx Alcohol Use: Yes. Hx Substance Use: Yes. Substance Use Type: Alcohol, Cocaine. Hx Substance Use Treatment: Yes (previous detoxes ). - Substances Abused. Alcohol. Route: Oral. Frequency: Daily. Amount used: LIQUOR- 1 QUART, BEER- 1 SIX PACK. Age of first use: 10. Date of Last Use: 12/07/17. Cocaine. Route: Inhalation (Sniff). Frequency: Daily. Amount used: 1 gm. Age of first use: 23. Date of Last Use: 12/07/17. Alprazolam (Xanax). Route: Oral. Frequency: Daily. Amount used: 6 mg daily. Age of first use: 40. Date of Last Use: 12/06/17. Heroin. Route: Inhalation. Frequency: 3-6 times per week (About 3 x/week.). Amount used: 6 bags. Age of first use: 33. Date of Last Use: 12/02/17 Medical History: Taken from chart : diabetes mellitus. Psychiatric History: Patient is a hostile,irritable and marginally cooperative historian.Clearly not willing to converse with this data analyst report writer.Mr Avalos denies having a psychiatric diosrder other substance abuse.No contact with a psychiatric OPD care provider.Previous records indicate a history of " one psychiatric hospitalization at [facility] after a suicide attempt via self-injection of insulin " during an episode of drug intoxication in 2016.Saw a psychiatrist for a period of 2-3 months in [place].Lost to follow up.Diagnosed with PTSD as per records.In this interview, the patient requested to resume seroquel at 50 mg/hs to address chronic insomnia. Physical/Sexual Abuse/Trauma History: Patient declines to discuss this subject. Additional Comment: Urine Drug Screen Results: DARIN-Cocaine.Noted. Mental Status Exam - Mental Status Exam Alert and Oriented to: Time, Place, Person Cognitive Function: Good Patient Appearance: Well Groomed Mood: Angry, Hostile, Withdrawn, Irritable (upset for being summoned for tests, vitals and examinations) Affect: Mood Congruent Patient Behavior: Fatigued, Uncooperative, Guarded Speech Pattern: Clear Voice Loudness: Normal Thought Process: Goal Oriented Hallucinations: Denies Suicidal Ideation: Denies Homicidal Ideation: Denies Insight/Judgement: Poor Sleep: Poorly, Difficulty falling asleep Appetite: Good Muscle strength/Tone: Normal (no complaint offered) Gait/Station: Normal Psychiatric Findings - Problem List ([place] 1, 2,3) (1) Alcohol dependence with uncomplicated withdrawal Current Visit: Yes Status: Acute (2) Opioid dependence with withdrawal Current Visit: Yes Status: Acute (3) Sedative, hypnotic or anxiolytic dependence with withdrawal, uncomplicated Current Visit: Yes Status: Acute (4) Cocaine dependence Current Visit: Yes Status: Acute (5) Substance induced mood disorder Current Visit: Yes Status: Acute (6) Insomnia Current Visit: Yes Status: Acute - Initial Treatment Plan Initial Treatment Plan: Psychoeducation.Sleep hygiene.Detoxification.Seroquel 50 mg po hs.Side effects/benefits discussed with patient.Consent (verbal) given.Observation.
[2017-12-10] MEDS: NICOTINE POLACRILEX 2 MG GUM BUC PRN (17:48)
[2017-12-10] MEDS: QUEtiapine FUMARATE 50 MG TABLET PO SCH (23:20)
[2017-12-10] MEDS: THIAMINE HCL 100 MG TABLET (FP) PO SCH (23:20)
[2017-12-11] MEDS: INSULIN (NOVOLOG MIX 70/30) 100 UNITS/ML MDV SQ SCH ×2 (07:35→17:07)
[2017-12-11] MEDS ORDERED: INSULIN (NOVOLOG MIX 70/30) 100 UNITS/ML MDV SQ ONE (07:38)
[2017-12-11] MEDS: chlordiazePOXIDE HCL 25 MG CAPSULE PO SCH ×2 (07:43→11:04)
[2017-12-11] MEDS: BACITRACIN 0.9 GM PACKET TP SCH ×2 (11:04→23:03)
[2017-12-11] MEDS: PRENATAL VITAMINS W/ FOLIC ACID TABLET (FP) PO SCH (11:04)
[2017-12-11] MEDS: NICOTINE 21 MG/24 HOURS TOPICAL PATCH TD SCH (11:04)
[2017-12-11] MEDS ORDERED: chlordiazePOXIDE HCL 25 MG CAPSULE PO SCH (12:48)
--- NOTE | 2017-12-11 12:52 | PN ---
S CIWA - CIWA Score Nausea/Vomitin-No Nausea/No Vomiting Muscle Tremors: 3 Anxiety: 3 Agitation: 2 Paroxysmal Sweats: 1-Minimal Palms Moist Orientation: 1-Uncertain about Date Tacttile Disturbances: 1-Very Mild Itch/Numbness Auditory Disturbances: 0-None Visual Disturbances: 0-None Headache: 0-None Present CIWA-Ar Total Score: 11 BHS Progress Note (SOAP) Subjective: feeling low energy tired trouble sleep at night last alcohol 12/07/17 due to hospitalized at [facility] x 3-4 days feeling sleepy from librium Objective: 12/11/17 12:52 Vital Signs Temperature 97.5 F L 12/11/17 06:00 Pulse Rate 64 12/11/17 06:00 Respiratory Rate 18 12/11/17 06:00 Blood Pressure 90/48 12/11/17 06:00 O2 Sat by Pulse Oximetry (%) Laboratory Last Values POC Glucometer 353 UNITS (80-120) 12/11/17 06:16 Laboratory Tests 12/09/17 12/10/17 12/10/17 19:21 06:53 16:33 POC Glucometer 411 282 340 12/11/17 06:16 POC Glucometer 353 12/11/17 12:55 last blood results 06/2017 Assessment: 12/11/17 12:55 withdrawal sx Plan: continue detox reduce librium routine dosage of 25mg to 15 mg due to patient was hospitalized 3 -4 days routine librium plus prn librium for alcohol withdrawal management admission lab work order result pending
[2017-12-11] MEDS: NICOTINE POLACRILEX 2 MG GUM BUC PRN (17:09)
[2017-12-11] MEDS: QUEtiapine FUMARATE 50 MG TABLET PO SCH (23:03)
[2017-12-11] MEDS: THIAMINE HCL 100 MG TABLET (FP) PO SCH (23:03)
[2017-12-11] MEDS: chlordiazePOXIDE 5 MG CAPSULE PO SCH (23:03)
[2017-12-12] MEDS: chlordiazePOXIDE 5 MG CAPSULE PO SCH ×3 (06:01→17:47)
[2017-12-12] MEDS: INSULIN (NOVOLOG MIX 70/30) 100 UNITS/ML MDV SQ SCH ×2 (07:54→16:59)
[2017-12-12] MEDS: PRENATAL VITAMINS W/ FOLIC ACID TABLET (FP) PO SCH (10:47)
[2017-12-12] MEDS: BACITRACIN 0.9 GM PACKET TP SCH ×2 (10:47→22:31)
[2017-12-12] MEDS: NICOTINE 21 MG/24 HOURS TOPICAL PATCH TD SCH (10:48)
--- NOTE | 2017-12-12 11:08 | EKG ---
Test Reason : Blood Pressure : / mmHG Vent. Rate : 064 BPM Atrial Rate : 064 BPM P-R Int : 166 ms QRS Dur : 082 ms QT Int : 402 ms P-R-T Axes : 052 015 037 degrees QTc Int : 414 ms NORMAL SINUS RHYTHM NORMAL ECG WHEN COMPARED WITH ECG OF 09-DEC-2017 22:24, NO SIGNIFICANT CHANGE WAS FOUND Confirmed by DHRUV BEARDEN MD ([id number]) on 12/12/2017 11:07:48 AM Referred By: Confirmed By:DHRUV BEARDEN MD
--- NOTE | 2017-12-12 11:09 | EKG ---
Test Reason : Blood Pressure : / mmHG Vent. Rate : 057 BPM Atrial Rate : 057 BPM P-R Int : 160 ms QRS Dur : 078 ms QT Int : 424 ms P-R-T Axes : 034 020 035 degrees QTc Int : 412 ms SINUS BRADYCARDIA OTHERWISE NORMAL ECG WHEN COMPARED WITH ECG OF 07-JUL-2017 15:28, NO SIGNIFICANT CHANGE WAS FOUND Confirmed by DHRUV BEARDEN MD ([id number]) on 12/12/2017 11:08:38 AM Referred By: Confirmed By:DHRUV BEARDEN MD
--- NOTE | 2017-12-12 12:17 | PN ---
S Progress Note (SOAP) Subjective: alert,irritable,interrupted sleep,anxious Objective: 12/12/17 12:17 Vital Signs Temperature 97.0 F L 12/12/17 09:00 Pulse Rate 75 12/12/17 09:00 Respiratory Rate 18 12/12/17 09:00 Blood Pressure 128/76 12/12/17 09:00 O2 Sat by Pulse Oximetry (%) Assessment: 12/12/17 12:21 withdrawal symptom Plan: continue detox,psychiatric evaluation,discharge in am
--- NOTE | 2017-12-12 14:24 | PN ---
Psychiatric Progress Note Vital Signs: Vital Signs Period Temp Pulse Resp BP Sys/Luo Pulse Ox Last 24 Hr 96.3 F-98 F 62-81 18-20 92-149/50-78 Date of Session: 12/12/17 Chief Complaint:: Insomnia HPI: Patient reports not sleeping well and asking to change his Seroquel to 100mg po qhs he was taking prior to admission with good response Current Medications: Active Medications Generic Name Dose Route Start Last Admin Trade Name Freq PRN Reason Stop Dose Admin Acetaminophen 650 mg 12/09/17 21:15 Tylenol - PO Q4H PRN FEVER Al Hydroxide/Mg Hydroxide 30 ml 12/09/17 21:15 Mylanta Oral Suspension - PO Q6H PRN DYSPEPSIA Bacitracin 0.9 gm 12/09/17 22:00 12/12/17 10:47 Bacitracin - TP 0.9 gm BID SEBASTIAN Administration Chlordiazepoxide HCl 15 mg 12/11/17 23:00 12/12/17 10:47 Librium - PO 12/12/17 17:01 15 mg [id number] SEBASTIAN Administration Chlordiazepoxide HCl 25 mg 12/09/17 21:15 12/11/17 17:08 Librium - PO 12/12/17 21:14 25 mg Q4H PRN Administration WITHDRAWAL(CONT SUBST) Chlordiazepoxide HCl 10 mg 12/12/17 23:00 Librium - PO 12/13/17 17:01 [id number] SEBASTIAN Eucalyptus/Menthol/Phenol/Sorbitol 1 each 12/09/17 21:15 Cepastat Lozenge - MM Q4H PRN SORE THROAT Guaifenesin 10 ml 12/09/17 21:15 Robitussin Dm - PO Q6H PRN COUGH Hydroxyzine Pamoate 50 mg 12/09/17 21:15 12/09/17 23:06 Vistaril - PO 50 mg Q4H PRN Administration AGITATION Ibuprofen 400 mg 12/09/17 21:15 Motrin - PO Q6H PRN PAIN LEVEL 4-6 Insulin Aspart 25 units 12/10/17 16:30 12/11/17 17:07 Novolog Mix 70/30 Vial SQ 25 units ACDIN SEBASTIAN Administration Insulin Aspart 30 units 12/10/17 07:00 12/12/17 07:54 Novolog Mix 70/30 Vial SQ 30 units ACBK SEBASTIAN Administration Loperamide HCl 4 mg 12/09/17 21:15 Imodium - PO Q6H PRN DIARRHEA Magnesium Citrate 300 ml 12/09/17 21:15 Citroma - PO Q48H PRN CONSTIPATION Magnesium Hydroxide 30 ml 12/09/17 21:15 Milk Of Magnesia - PO DAILY PRN CONSTIPATION Melatonin 5 mg 12/09/17 22:00 Melatonin PO HS PRN INSOMNIA Nicotine 21 mg 12/10/17 10:00 12/12/17 10:48 Nicoderm Patch - TD Not Given DAILY SEBASTIAN Nicotine Polacrilex 2 mg 12/09/17 21:15 12/11/17 17:09 Nicorette Gum - BUC 2 mg Q2H PRN Administration NICOTINE REPLACEMENT RX Multivit/Folic Acid/Iron 1 tab 12/10/17 10:00 12/12/17 10:47 Vitamins (Sjr) - PO 1 tab DAILY SEBASTIAN Administration Pseudoephedrine/Triprolidine 1 combo 12/09/17 21:15 Actifed - PO TID PRN NASAL CONGESTION Quetiapine Fumarate 50 mg 12/10/17 22:00 12/11/17 23:03 Seroquel - PO 50 mg HS SEBASTIAN Administration Thiamine HCl 100 mg 12/09/17 22:00 12/11/17 23:03 Vitamin B1 - PO 100 mg HS SEBASTIAN Administration Medication(s) Change(s): Seroquel 100mg po qhs Mental Status Exam - Mental Status Exam Alert and Oriented to: Person Cognitive Function: Fair Patient Appearance: Well Groomed Mood: Anxious, Apprehensive Affect: Mood Congruent Patient Behavior: Cooperative Speech Pattern: Delayed Voice Loudness: Mildly Soft/Quiet Thought Process: Goal Oriented Thought Disorder: Being Controlled Hallucinations: Denies Suicidal Ideation: Denies Homicidal Ideation: Denies Insight/Judgement: Fair Sleep: Difficulty falling asleep Appetite: Fair Muscle strength/Tone: Normal Gait/Station: Normal Additional Comments: Seroquel 100mg po qhs Psychiatric Treatment Plan - Problem List (1) Alcohol dependence with uncomplicated withdrawal Current Visit: Yes (2) Cocaine dependence Current Visit: Yes (3) Insomnia Current Visit: Yes (4) Opioid dependence with withdrawal Current Visit: Yes (5) Sedative, hypnotic or anxiolytic dependence with withdrawal, uncomplicated Current Visit: Yes (6) Substance induced mood disorder Current Visit: Yes (7) Diabetes mellitus, type II Current Visit: No Qualifiers: Diabetes mellitus senior living insulin use: with terminal computer operator use Diabetes mellitus complication status: with neurologic complications Diabetes mellitus complication detail: with autonomic neuropathy Qualified Code(s): E11.43 - Type 2 diabetes mellitus with diabetic autonomic (poly)neuropathy; Z79.4 - termite treater (current) use of insulin; Z79.4 - termite treater (current) use of insulin; Z79.4 - termite treater (current) use of insulin; Z79.4 - [facility] (current) use of insulin Initial treatment plan: Seroquel 100mg po qhs
[2017-12-12 15:45] LABS: HEMATOCRIT 42.4 % (35.4-49); HEMOGLOBIN 14.4 GM/dL (11.7-16.9); MCH 28.8 pg (25.7-33.7); MEAN CELL VOLUME 84.5 fl (80-96); MEAN PLT VOLUME 9.9 fl (7.5-11.1); PLATELET COUNT 147 K/MM3 (134-434); RBC 5.02 M/mm3 (4.00-5.60); RDW 13.4 % (11.9-15.9); WHITE BLOOD COUNT 3.3 K/mm3 (4.0-10.0)
[2017-12-12 15:56] LABS: ANION GAP 7 (8-16); BLOOD UREA NITROGEN 11 mg/dL (7-18); CALCIUM 8.2 mg/dL (8.5-10.1); CHLORIDE 102 mmol/L (98-107); CO2 29 mmol/L (21-32); POTASSIUM 3.9 mmol/L (3.5-5.1); SGOT/AST 7 U/L (15-37); SGPT/ALT 23 U/L (12-78); SODIUM 138 mmol/L (136-145)
[2017-12-12 15:59] LABS: ALK PHOS 76 U/L (45-117); BILIRUBIN,TOTAL 0.3 mg/dL (0.2-1.0); TOT PROT 5.8 g/dl (6.4-8.2)
[2017-12-12 16:01] LABS: GLUCOSE,RANDOM 362 mg/dL (74-106)
[2017-12-12] MEDS ORDERED: INSULIN (NOVOLOG MIX 70/30) 100 UNITS/ML MDV SQ ONE (16:54)
[2017-12-12] MEDS ORDERED: QUEtiapine FUMARATE 100 MG TABLET (FP) PO SCH (22:00)
[2017-12-12] MEDS: chlordiazePOXIDE HCL 10 MG CAPSULE PO SCH (22:31)
[2017-12-12] MEDS: THIAMINE HCL 100 MG TABLET (FP) PO SCH (22:31)
[2017-12-13] MEDS: chlordiazePOXIDE HCL 10 MG CAPSULE PO SCH ×2 (06:36→11:31)
[2017-12-13] MEDS: INSULIN (NOVOLOG MIX 70/30) 100 UNITS/ML MDV SQ SCH (08:00)
--- NOTE | 2017-12-13 10:35 | PN ---
S Progress Note (SOAP) Subjective: alert,no complaint Objective: 12/13/17 10:32 Vital Signs Temperature 97.9 F 12/13/17 09:48 Pulse Rate 81 12/13/17 09:48 Respiratory Rate 18 12/13/17 09:48 Blood Pressure 131/50 12/13/17 09:48 O2 Sat by Pulse Oximetry (%) Laboratory Last Values WBC 3.3 K/mm3 (4.0-10.0) L 12/12/17 09:50 RBC 5.02 M/mm3 (4.00-5.60) 12/12/17 09:50 Hgb 14.4 GM/dL (11.7-16.9) 12/12/17 09:50 Hct 42.4 % (35.4-49) 12/12/17 09:50 MCV 84.5 fl (80-96) 12/12/17 09:50 MCH 28.8 pg (25.7-33.7) 12/12/17 09:50 MCHC 34.0 g/dl (32.0-35.9) 12/12/17 09:50 RDW 13.4 % (11.9-15.9) D 12/12/17 09:50 Plt Count 147 K/MM3 (134-434) 12/12/17 09:50 MPV 9.9 fl (7.5-11.1) 12/12/17 09:50 Sodium 138 mmol/L (136-145) 12/12/17 09:50 Potassium 3.9 mmol/L (3.5-5.1) 12/12/17 09:50 Chloride 102 mmol/L (98-107) 12/12/17 09:50 Carbon Dioxide 29 mmol/L (21-32) D 12/12/17 09:50 Anion Gap 7 (8-16) L 12/12/17 09:50 BUN 11 mg/dL (7-18) 12/12/17 09:50 Creatinine 1.0 mg/dL (0.7-1.3) 12/12/17 09:50 Creat Clearance w eGFR > 60 (>60) 12/12/17 09:50 POC Glucometer 212 UNITS (80-120) 12/13/17 06:25 Random Glucose 362 mg/dL (74-106) H* D 12/12/17 09:50 Calcium 8.2 mg/dL (8.5-10.1) L 12/12/17 09:50 Total Bilirubin 0.3 mg/dL (0.2-1.0) 12/12/17 09:50 AST 7 U/L (15-37) L D 12/12/17 09:50 ALT 23 U/L (12-78) 12/12/17 09:50 Alkaline Phosphatase 76 U/L (45-117) 12/12/17 09:50 Total Protein 5.8 g/dl (6.4-8.2) L 12/12/17 09:50 Albumin 3.0 g/dl (3.4-5.0) L 12/12/17 09:50 bgm 212 Assessment: 12/13/17 10:33 detox completed Plan: patient to be transferred to [address] [place] [address] for continuing further level of care
[2017-12-13] MEDS: PRENATAL VITAMINS W/ FOLIC ACID TABLET (FP) PO SCH (11:31)
[2017-12-13] MEDS: BACITRACIN 0.9 GM PACKET TP SCH (11:31)
[2017-12-13] MEDS: NICOTINE 21 MG/24 HOURS TOPICAL PATCH TD SCH (11:31)
[2017-12-13 13:22] VITALS: BP 125/73; PULSE 73; TEMP 98.7; BMI 29.1
--- NOTE | 2017-12-13 15:39 | DS ---
[facility] Detox Discharge Summary Admission Date: 12/09/17 Discharge Date: 12/13/17 - History Present History: Alcohol Dependence, Cocaine Dependence Additional Comments: follow up with after care program as arrangement Pertinent Past History: iddm nicotine dependence - Physical Exam Results Vital Signs: Vital Signs Temperature 98.7 F 12/13/17 13:21 Pulse Rate 73 12/13/17 13:21 Respiratory Rate 18 12/13/17 13:21 Blood Pressure 125/73 12/13/17 13:21 O2 Sat by Pulse Oximetry (%) Pertinent Admission Physical Exam Findings: withdrawal signs and symptom Vital Signs Temperature 98.7 F 12/13/17 13:21 Pulse Rate 73 12/13/17 13:21 Respiratory Rate 18 12/13/17 13:21 Blood Pressure 125/73 12/13/17 13:21 O2 Sat by Pulse Oximetry (%) Laboratory Last Values WBC 3.3 K/mm3 (4.0-10.0) L 12/12/17 09:50 RBC 5.02 M/mm3 (4.00-5.60) 12/12/17 09:50 Hgb 14.4 GM/dL (11.7-16.9) 12/12/17 09:50 Hct 42.4 % (35.4-49) 12/12/17 09:50 MCV 84.5 fl (80-96) 12/12/17 09:50 MCH 28.8 pg (25.7-33.7) 12/12/17 09:50 MCHC 34.0 g/dl (32.0-35.9) 12/12/17 09:50 RDW 13.4 % (11.9-15.9) D 12/12/17 09:50 Plt Count 147 K/MM3 (134-434) 12/12/17 09:50 MPV 9.9 fl (7.5-11.1) 12/12/17 09:50 Sodium 138 mmol/L (136-145) 12/12/17 09:50 Potassium 3.9 mmol/L (3.5-5.1) 12/12/17 09:50 Chloride 102 mmol/L (98-107) 12/12/17 09:50 Carbon Dioxide 29 mmol/L (21-32) D 12/12/17 09:50 Anion Gap 7 (8-16) L 12/12/17 09:50 BUN 11 mg/dL (7-18) 12/12/17 09:50 Creatinine 1.0 mg/dL (0.7-1.3) 12/12/17 09:50 Creat Clearance w eGFR > 60 (>60) 12/12/17 09:50 POC Glucometer 212 UNITS (80-120) 12/13/17 06:25 Random Glucose 362 mg/dL (74-106) H* D 12/12/17 09:50 Calcium 8.2 mg/dL (8.5-10.1) L 12/12/17 09:50 Total Bilirubin 0.3 mg/dL (0.2-1.0) 12/12/17 09:50 AST 7 U/L (15-37) L D 12/12/17 09:50 ALT 23 U/L (12-78) 12/12/17 09:50 Alkaline Phosphatase 76 U/L (45-117) 12/12/17 09:50 Total Protein 5.8 g/dl (6.4-8.2) L 12/12/17 09:50 Albumin 3.0 g/dl (3.4-5.0) L 12/12/17 09:50 RPR Titer Nonreactive (NONREACTIVE) 12/12/17 09:50 - Treatment Hospital Course: Detox Protocol Followed, Detoxed Safely, Responded well, Discharged Condition Good Patient has Accepted a [facility] Referral [facility] - Medication Discharge Medications: Ambulatory Orders Quetiapine Fumarate [Seroquel -] 100 mg PO HS 07/07/17 Insulin (Novolog 70/30) [Novolog Mix 70/30 Vial] 25 iu SQ HS 12/09/17 Insulin (Novolog 70/30) [Novolog Mix 70/30 Vial] 30 iu SQ DAILY 12/09/17 Quetiapine Fumarate [Seroquel -] 100 mg PO HS #30 tablet 12/12/17 - Diagnosis (1) Alcohol dependence with uncomplicated withdrawal Current Visit: Yes Status: Acute (2) Cocaine dependence Current Visit: Yes Status: Chronic Qualifiers: Substance use status: uncomplicated Qualified Code(s): F14.20 - Cocaine dependence, uncomplicated (3) Sedative, hypnotic or anxiolytic dependence with withdrawal, uncomplicated Current Visit: Yes Status: Acute (4) Diabetes mellitus, type II Current Visit: No Status: Chronic Qualifiers: Diabetes mellitus terminal operator insulin use: with terminal operator use Diabetes mellitus complication status: with neurologic complications Diabetes mellitus complication detail: with autonomic neuropathy Qualified Code(s): E11.43 - Type 2 diabetes mellitus with diabetic autonomic (poly)neuropathy; Z79.4 - exterminator termite (current) use of insulin; Z79.4 - detention (current) use of insulin; Z79.4 - exterminator termite (current) use of insulin; Z79.4 - detention (current) use of insulin - AMA Did Patient Leave Against Medical Advice: No
== END 2017-12-13 13:03 | disposition other institution (70) | DRG 897 ==
LOC: YASAS 13:44 → Y6N 19:45 → Y5N 12-13 13:06
PROVIDERS: ADMIT Surgery; ATTEND Surgery
PROC: HZ2ZZZZ Detoxification Services for Substance Abuse Treatment (ICD-10-PCS; principal; 2017-12-09)
DX: F11.23 Opioid dependence with withdrawal (principal); F14.20 Cocaine dependence, uncomplicated; F10.230 Alcohol dependence with withdrawal, uncomplicated; F13.230 Sedative, hypnotic or anxiolytic dependence with withdrawal, uncomplicated; F17.213 Nicotine dependence, cigarettes, with withdrawal; F19.24 Other psychoactive substance dependence with psychoactive substance-induced mood disorder; G47.00 Insomnia, unspecified; E11.43 Type 2 diabetes mellitus with diabetic autonomic (poly)neuropathy; Z79.4 Long term (current) use of insulin; R21 Rash and other nonspecific skin eruption; Z59.0 Homelessness
CPT/HCPCS: 36415; 80053; 82962; 85027; 86593; 93005; 93010

== ENCOUNTER 2017-12-13 15:15 | Inpatient (IN) | payer OTHER ==
[2017-12-13 15:31] VITALS: BP 125/73; PULSE 73; TEMP 98.7; BMI 26.9
--- NOTE | 2017-12-13 15:59 | HP ---
[facility] Rehab Assess/Revision - Admission History Admitted to Rehab from: [facility] Date of Admission to Rehab: 12/13/17 - Vital signs Vital Signs: Vital Signs Period Temp Pulse Resp BP Sys/Luo Pulse Ox Last 24 Hr 98.7 F 73 18 125/73 - Findings Detox History & Physical reviewed: Yes Concur with findings: Yes Comments/Additional Findings: for ehab as protocol Inpatient Rehab Admission - Initial Determination Are CD services needed?: Yes Free of communicable disease: Yes Not in need of hospitalization: Yes - Rehab Admission Criteria Previous failed treatment: Yes Poor recovery environment: Yes Comorbidities: Yes Lacks judgement: No Patient is meeting Inpatient Rehab admission criteria:: Yes
[2017-12-13] MEDS ORDERED: LOPERAMIDE HCL 2 MG CAPSULE PO PRN (16:10)
[2017-12-13] MEDS ORDERED: hydrOXYzine PAMOATE 50 MG CAPSULE (FP) PO PRN (16:10)
[2017-12-13] MEDS ORDERED: MAG HYDROX/AL HYDROX/SIMETH 30 ML UNIT-DOSE CUP PO PRN (16:10)
[2017-12-13] MEDS ORDERED: MAGNESIUM CITRATE 300 ML BOTTLE PO PRN (16:10)
[2017-12-13] MEDS ORDERED: ACETAMINOPHEN 325 MG TABLET (FP) PO PRN (16:10)
[2017-12-13] MEDS ORDERED: guaiFENesin/D-METHORPHAN HB 10 ML UNIT-DOSE CUPS PO PRN (16:10)
[2017-12-13] MEDS ORDERED: MENTHOL/PHENOL 1 EACH UD MM PRN (16:10)
[2017-12-13] MEDS ORDERED: P-EPHED 60MG/TRIPROLIDI 2.5MG TABLET PO PRN (16:10)
[2017-12-13] MEDS ORDERED: IBUPROFEN 400 MG TABLET (FP) PO PRN (16:10)
[2017-12-13] MEDS ORDERED: MAGNESIUM HYDROX 2400MG/30ML ORAL SUSPENSION 30 ML CUP PO PRN (16:10)
[2017-12-13] MEDS ORDERED: INSULIN (NOVOLOG MIX 70/30) 100 UNITS/ML MDV SQ SCH (16:30)
[2017-12-13] MEDS ORDERED: MELATONIN 5 MG TABLETS PO PRN (22:00)
[2017-12-13] MEDS ORDERED: THIAMINE HCL 100 MG TABLET (FP) PO SCH (22:00)
[2017-12-14] MEDS ORDERED: INSULIN (NOVOLOG MIX 70/30) 100 UNITS/ML MDV SQ SCH (07:00)
[2017-12-14] MEDS ORDERED: PRENATAL VITAMINS W/ FOLIC ACID TABLET (FP) PO SCH (10:00)
== END 2017-12-13 20:00 | disposition left against medical advice (07) | DRG 894 ==
LOC: YASAS 15:15 → Y5N 15:16
PROVIDERS: ADMIT Psychiatry & Neurology Psychiatry; ATTEND Psychiatry & Neurology Psychiatry
PROC: HZ42ZZZ Group Counseling for Substance Abuse Treatment, Cognitive-Behavioral (ICD-10-PCS; principal; 2017-12-13)
DX: F10.230 Alcohol dependence with withdrawal, uncomplicated (principal); F14.20 Cocaine dependence, uncomplicated; F13.230 Sedative, hypnotic or anxiolytic dependence with withdrawal, uncomplicated; F11.10 Opioid abuse, uncomplicated; F17.210 Nicotine dependence, cigarettes, uncomplicated; E11.43 Type 2 diabetes mellitus with diabetic autonomic (poly)neuropathy; Z79.4 Long term (current) use of insulin; F19.24 Other psychoactive substance dependence with psychoactive substance-induced mood disorder; R21 Rash and other nonspecific skin eruption; Z59.0 Homelessness